=== PATIENT | female | born 1970 | race Caucasian/White ===

== ENCOUNTER 2017-10-18 10:42 | Day surgery (SDC) | payer BC ==
[2017-10-12 11:54] LABS: Absolute Monocytes 0.4 K/uL (0.1-1.3); Absolute Neutrophil 4.4 K/uL (1.8-8.0); Basophils % 0.5 % (0-1.3); Eosinophils % 1.7 % (0-4.4); Hematocrit 39.3 % (36.0-45.0); Lymphocytes % 28.2 % (15.3-44.8); MCH 24.8 pg (27.0-35.0); MPV 9.8 fL (7.6-11.3); Monocytes % 5.7 % (3.3-12.3); RBC Red Blood Cell Count 5.04 M/uL (3.86-4.86)
[2017-10-12 12:02] LABS: Urine Appearance CLEAR; Urine Bilirubin NEGATIVE (NEG); Urine Blood NEGATIVE (NEG); Urine Color YELLOW; Urine Glucose NEGATIVE (NEG); Urine Protein NEGATIVE (NEG); Urine Urobilinogen 0.2 mg/dL (0.2-1.0)
[2017-10-12 12:06] LABS: Urine Microscopic Reflex NO UMIC
[2017-10-18] MEDS ORDERED: SCOPOLAMINE HYDROBROMIDE PATCH TD ONE (11:04)
[2017-10-18] MEDS ORDERED: Ringers Lactate 1,000 ML IV ONE (11:05)
[2017-10-18 11:09] LABS: Specific Gravity 1.025 (1.005-1.030)
[2017-10-18] MEDS ORDERED: NA CHLORIDE 0.9% 1,000 ML ONE (11:10)
[2017-10-18] MEDS ORDERED: DEXAMETHASONE 10 MG/ML VIAL ONE (11:33)
[2017-10-18] MEDS ORDERED: FENTANYL CITR 250 MCG/5 ML ONE (11:33)
[2017-10-18] MEDS ORDERED: ROCURONIUM 50 MG/5 ML VIAL IV ONE (11:33)
[2017-10-18] MEDS ORDERED: PROPOFOL 200 MG/20 ML VIAL IV ONE (11:33)
[2017-10-18] MEDS ORDERED: MIDAZOLAM HCL 2 MG/2 ML INJ ONE (11:33)
[2017-10-18] MEDS: CEFAZOLIN/SWI 1gm 1 GM/10 ML SYR ONE ×2 (12:08→12:15)
[2017-10-18] MEDS: Ringers Lactate 1,000 ML IV ONE ×2 (13:01→13:13)
[2017-10-18] MEDS ORDERED: FENTANYL CITR 100 MCG/2 ML ONE (13:58)
[2017-10-18] MEDS ORDERED: KETOROLAC 30 MG/ML INJ ONE ×2 (14:40)
[2017-10-18] MEDS ORDERED: Mastisol Adhesive Liq ONE (14:56)
[2017-10-18] MEDS ORDERED: MORPHINE 4 MG/ML SYR ONE (15:47)
[2017-10-18] MEDS ORDERED: ONDANSETRON 4 MG/2 ML VIAL ONE (15:54)
[2017-10-18] MEDS ORDERED: METOCLOPRAMIDE 10 MG/2mL INJ ONE (16:03)
[2017-10-18] MEDS ORDERED: PROMETHAZINE 25 MG/ML VIAL ONE (16:16)
[2017-10-18] MEDS ORDERED: HYDROCODONE/APAP 5/325 MG TAB ONE (17:15)
--- NOTE | 2017-10-19 02:05 | OP ---
Date of Procedure: 10/18/2017 Surgeon: Mila Fink MD Rn Heart: Orquidea Go. Preoperative Diagnoses: Leiomyomata, abnormal uterine bleeding (AUB-L), and pelvic pain. Postoperative Diagnoses: Leiomyomata, abnormal uterine bleeding (AUB-L), and pelvic pain. Procedures Performed: Total laparoscopic hysterectomy, vaginal morcellation of the uterus for extrac tion, bilateral salpingectomy, right ovarian pexy, uterosacral ligament distal colpopexy, and cystosc opy. Anesthesia: General endotracheal. Ebl: 50 mL. Urine Output: 300. Complications: No complications. Drains: None. Specimens: Uterus, bilateral tubes. The uterine specimen morcellated. Findings: Multiple large and small leiomyomata were seen. There was a large fundal posterior left l eiomyoma that displaces the uterine cavity towards the right. Both tubes were ligated, but other eveline n that ovaries normal. No evidence of any endometriosis. The specimen was put in a bag and morcella glendy without any problems. Description Of Procedure: After informed consent was verified, the patient was taken back to the OR. She was placed in supine fashion on the operating table. After general anesthesia was given, she w as placed in a dorsal lithotomy position. Arms were tucked. Frandy stirrups were used. One gram of Ancef was given. Abdomen, vulva, vagina, and perineum were prepped and draped in a sterile fashion. Archuleta was placed to drain the bladder and attached to cysto tubing to an LR bag, emptied 300, and a large VCare introduced into the uterus and fixed in place. A 1 cm infraumbilical incision was made with a scalpel in a transverse semilunar fashion. The fascia was exposed, incised, tagged with 0 Vicryl sutures. Peritoneum entered bluntly and S retractors jhon tavia and Ramone introduced. A 5 mm left lower quadrant and 10 mm suprapubic ports were placed under direct vision. There was tra vickie from the suprapubic port placement on the uterus, which was bleeding. So this was cauterized wit h a bipolar basket tip in 2 places. Then, there was excellent hemostasis. So we moved on towards th e hysterectomy. The patient was placed in T-morales. The small bowel was packed into the upper abdomin al cavity. The sigmoid was decompressed and it was not difficult to retract using the 2 incisions. Using the 5-mm LigaSure, the peritoneum inferior to the left round ligament was picked up and the riri dder flap was raised all the way to the right. Then, the mesosalpinx tube and left utero-ovarian lig ament were all taken down. Round ligament was taken down and anterior and posterior leaves of the br oad ligament were opened up and anterior connected to the bladder flap. Posterior taken to the left uterosacral. The broad ligament was taken down. The LigaSure and vessels were isolated. On the opposite side, similar dissection was performed. Once all this was done, then the anterior ve sicovaginal space was opened up with the help of a monopolar hook blade in the area of the vaginal cu ff. Once the bladder was retracted inferiorly about 3 cm, then we went down to take down the pedicle s on the right side, then on the left side. Both cardinal ligaments were also taken down with the he lp of the LigaSure. A circumferential colpotomy was performed with a monopolar hook blade. Both ure ters were visualized from the pelvic brim to the ureteric tunnel and the courses were undistorted castro tomically at the beginning of the case. Thorough irrigation and suction of the vaginal cuff was done. There was bleeding at 3 o'clock. This was picked up with a tip of the [place] and the bipolar medium tip was used to cauterize here. Both tubes were removed, first the left then the right with the help of the LigaSure. There were ret rieved through the suprapubic trocar. After placing a large Elan bag into the abdominal cavity through the vagina, the uterine specimen w as placed here, placed into the bag, and then the rim of the bag was pulled out. Vaginally we went o n to open the rim and then vaginal morcellation of the specimen was done. Three #10 blade had to be used since the thickness of the fibroids was very high. After the morcellation, the occlusion bulb was placed. Archuleta was left in place. The uterosacrals appeared to be not supporting the apex very well. So plan was to reattach them eith er with closure or separately. Two angled sutures were placed with simple 0 Vicryl on a CT1 needle. Then, 3 medial [id number] stitches were placed. The first lateral one was placed through the distal uterosacral into the poste rior rectovaginal septum and anteriorly and they were used to re-support it to the apex on the left s deana. After all the vaginal closure was done, this was reattached in the distal part of the uterosacr al to the vaginal cuff including the posterior septum precervical fascia and whole cuff. Simple 0 Vi cryl stitches were placed and tied down. The ovary on the left appeared to be well adherent to the l eft abdominal sidewall. However, the right one appeared to be loose and it had high risk of torsion. So I went on to take the base of the ovary and attach it to the base of the cut round ligament. On ce the 3-0 Vicryl suture was placed with the help of the needle pole truck driver, then this was tied with an ex tracorporeal knot tying. Thorough irrigation and suction were performed. Excellent hemostasis was secured. After the vaginal morcellation was done, one of the pedicles had opened up on the right side. This was picked up with the tip of hemostats, most likely at small branches of the uterine artery. This was clipped with e help of 5 mm clips x2. There was excellent hemostasis. After this, there were no problems. The trocars were removed under direct vision without removing the umbilical trocar. We went down to do a cystoscopy. A 17-Welsh sheath, 30-degree lens normal saline were used for distention medium. Both the bladder w as filled about 300 cc. Both ureteric orifices were patent and had strong jets of urine. No evidenc e of any foreign body or trauma to the bladder. The Archuleta was pulled out. Vaginoscopy was performed to see the vaginal cuff and there was excellent hemostasis and closure. This was removed and gloves were changed. We went back up. The fascia at the umbilical incision was closed with the help of 0 Vicryl in [id number] fashion, simple 0 Vicryl stitch in the subcutaneous, and a simple 0 Vicryl suture on the fascia at the suprapubic site. All skin incisions closed with the help of 5-0 Vicryl. Instrument, needle, and sponge counts were done. Archuleta cath was left out. The patient tolerated th e procedure well. She will follow up with me in 1 week. She will be discharged today. I will plan to see her for her first and second postop and then she can follow up with her gynecologi st. FLORENTIN/BANDAR Voice ID: [id number] Report ID: [id number]
== END 2017-10-18 18:20 | disposition home or self-care (01) ==
LOC: OR 10:42
PROVIDERS: ATTEND Obstetrics & Gynecology
PROC: 0UT74ZZ Resection of Bilateral Fallopian Tubes, Percutaneous Endoscopic Approach (ICD-10-PCS; 2017-10-18)
PROC: 0US04ZZ Reposition Right Ovary, Percutaneous Endoscopic Approach (ICD-10-PCS; 2017-10-18)
PROC: 0USG7ZZ Reposition Vagina, Via Natural or Artificial Opening (ICD-10-PCS; 2017-10-18)
PROC: 0UT94ZZ Resection of Uterus, Percutaneous Endoscopic Approach (ICD-10-PCS; principal; 2017-10-18 12:30)
DX: N93.9 Abnormal uterine and vaginal bleeding, unspecified (principal); D25.1 Intramural leiomyoma of uterus; E78.5 Hyperlipidemia, unspecified; Z83.3 Family history of diabetes mellitus; Z82.49 Family history of ischemic heart disease and other diseases of the circulatory system
CPT/HCPCS: 36415; 81003; 81025; 85025; 86850; 86900; 86901; 88305; 88307; J0690; J1100; J2250; J2405; J2550; J2765; J3010; J7030